=== PATIENT | male | born 1985 | race Caucasian/White ===

== ENCOUNTER 2017-09-19 23:17 | Emergency (ER) | payer OTHER, SELFPAY ==
[2017-09-19 23:23] VITALS: BP 136/83; PULSE 120; RESP 20; TEMP 38.2; O2SAT 97; BMI 30.7
--- NOTE | 2017-09-20 00:14 | ED_ITS ---
HPI - General Adult General Chief complaint: Back Pain/Injury Stated complaint: low back pain, fever, neck hurts Time Seen by Provider: 09/19/17 23:53 Source: patient Mode of arrival: ambulatory Limitations: no limitations History of Present Illness HPI narrative: Otherwise healthy 32-year-old male here for evaluation of fevers and chills and back and neck pain. Patient states that he has scoliosis and has baseline back pain. He states that earlier in the evening he developed a fever and chills which cause his back and neck pain. Has some nausea but no vomiting. Does have a sore throat. Does have sinus congestion. Has took some Advil prior to arrival. No problem swallowing. No cough. Related Data Allergies Allergy/AdvReac Type Severity Reaction Status Date / Time No Known Drug Allergies Allergy Verified 09/19/17 23:26 Review of Systems Constitutional Reports body ache(s), Reports chills, Reports fatigue, Reports fever(s), Denies headache(s), Denies lethargy and Denies weakness Eyes Denies change in vision, Denies eye discharge, Denies irritation and Denies loss of vision ENT Ears, Nose, Mouth, and Throat: Denies dysphagia, Denies vertigo, Denies headache (s), Reports sinus pressure and Reports sore throat Cardiovascular Denies chest pain, Denies irregular heart rhythm, Denies lightheadedness, Denies palpitations, Denies dyspnea, Denies dyspnea on exertion and Denies orthopnea Respiratory Denies cough, Denies dyspnea, Denies dyspnea on exertion and Denies wheezing Gastrointestinal Gastrointestinal: Denies dysphagia, Reports nausea and Denies vomiting Musculoskeletal Reports myalgias and Denies arthralgias Integumentary/Breasts Denies pruritus, Denies erythema, Denies rash and Denies wounds Neurologic Denies vertigo, Denies headache(s), Denies loss of vision and Denies weakness Endocrine Reports fatigue and Denies palpitations Hematologic/Lymphatic Denies easy bruising Allergic/Immunologic Denies wheezing [facility] Social History Smoking Status: Never smoker Exam Initial Vital Signs Initial Vital Signs: Vital Signs Temperature 100.8 F H 09/19/17 23:23 Pulse Rate 120 H 09/19/17 23:23 Respiratory Rate 20 09/19/17 23:23 Blood Pressure 136/83 H 09/19/17 23:23 Pulse Oximetry 97 09/19/17 23:23 Const General: cooperative and well developed Nutritional Appearance: well nourished Orientation: alert, awake, oriented x3 and not confused [facility] Head: normocephalic and atraumatic Ears: external ears normal and TM's normal bilaterally Nose: external nose normal and No nasal discharge Face and sinus: sinuses nontender, face symmetric, no sinus tenderness and No dry mucous membranes Mouth: oral mucosae normal and moist mucous membranes Teeth and gingiva: dentition normal Throat: tonsils normal and uvula midline Neck Neck: normal visual inspection, no meningeal signs, No positive Brudzinski's sign and No positive Kernig's sign Lymphatic: No lymphadenopathy Resp Effort & Inspection: normal respiratory effort, able to speak in complete sentences, no respiratory distress and no use of accessory muscles Auscultation: clear to auscultation bilaterally, no rales, no rhonchi and no wheezes Back/Spine/Pelvis Back: No CVA tenderness Cervical Spine: cervical ROM normal and pain with cervical ROM (Right-sided paraspinal tenderness with flexion) Thoracic/Lumbar Spine: thoracic and lumbar spine normal to inspection Skin General: no rashes or lesions noted, No jaundice and No petechiae Neuro General: alert, oriented x3, gait normal and no focal motor deficits Speech: speech normal Motor: muscle tone normal throughout Sensory Exam: no sensory deficits noted Extrem General: full ROM, no clubbing, cyanosis or edema, no pedal edema and no calf tenderness Course Orders Ordered: ED Orders 09/20/17 00:34 Influenza A and B by PCR Rapid Stat Discontinued Medications Acetaminophen (Tylenol) 975 mg PO NOW ONE Stop: 09/20/17 00:15 Last Admin: 09/20/17 00:43 Dose: 975 mg Sodium Chloride (Normal Saline 0.9%) 1,000 mls @ 1,000 mls/hr IV BOLUS ONE Stop: 09/20/17 01:13 Ketorolac Tromethamine (Toradol) 30 mg IV NOW ONE Stop: 09/20/17 00:15 Morphine Sulfate (Morphine) 4 mg IV NOW ONE Stop: 09/19/17 23:54 Ondansetron HCl (Zofran) 4 mg IV Q2HR PRN PRN Reason: Nausea And Vomiting Vital Signs - 8 hr 09/19/17 23:23 Temperature 100.8 F H Pulse Rate 120 H Respiratory Rate 20 Blood Pressure 136/83 H Pulse Oximetry 97 Medical Decision Making MDM Narrative Medical decision making narrative: Patient is nontoxic appearing. Did have a fever. Was given IV fluids and Toradol and Tylenol upon arrival and he states that that has improved his symptoms tremendously. We did discussed the concern for meningitis secondary to his neck pain and his fever however his physical exam is not real consistent with this diagnosis. We did discuss that lumbar puncture would be the only definitive way of distinguishing meningitis or not. Patient stated that he did not want a lumbar puncture. His flu was negative. Physical exam not consistent with pneumonia. Does have sinus congestion a sore throat. We did discuss the importance of holding off on other NSAIDs for the next 24 hr. He was given return precautions. He expressed understanding and agreement with plan. Lab Data Lab results reviewed: Yes I reviewed the patient's lab results. Lab Results 09/20/17 Range/Units 00:34 Influenza A & B (PCR) Negative (Negative) Discharge Plan Departure Patient Disposition: Home, Self-Care Clinical Impression: Fever and chills, Back pain Instructions: DI for Fever (Symptom) -- Adult Activity Restrictions/Additional Instructions: Recommend that you stay away from nonsteroidal such as Motrin, ibuprofen, Naprosyn, Advil for the next 24 hr. You can take Tylenol/acetaminophen for any fevers or chills. Follow up with her medical department tomorrow. Return to the emergency department for any new or worsening symptoms Stand Alone Forms: Work/School Restrictions
[2017-09-20] MEDS: SODIUM CHLORIDE 0.9% 1,000 ML 1000 ML IV (00:30)
[2017-09-20] MEDS: MORPHINE 4 MG/ML INJ IV (00:35)
[2017-09-20] MEDS: ACETAMINOPHEN 325 MG TABLET 975 MG PO (00:43)
[2017-09-20 01:01] LABS: Influenza A and B by PCR Rapid Negative (Negative)
[2017-09-20] MEDS: KETOROLAC 60 MG/2 ML VIAL 30 MG IV (01:37)
[2017-09-20 01:49] VITALS: BP 130/66; PULSE 90; RESP 18; TEMP 38.3; O2SAT 98
== END 2017-09-20 01:30 | disposition home or self-care (01) ==
PROVIDERS: Emergency Provider Emergency Medicine
DX: R50.9 Fever, unspecified (principal); M54.9 Dorsalgia, unspecified
CPT/HCPCS: 87400; 87880; 96361; 96374; 96375; 99283; 99284; J1885; J2270

== ENCOUNTER 2017-12-13 21:10 | Emergency (ER) | payer OTHER, SELFPAY ==
[2017-12-13] VITALS (8 sets, daily range): BP systolic 123–158; BP diastolic 74–108; PULSE 70–88; RESP 15–28; TEMP 37; O2SAT 96–100; BMI 30.3
[2017-12-13] MEDS: NITROGLYCERIN 0.4 MG SL TAB SL (21:20)
--- NOTE | 2017-12-13 21:21 | DI.RAD.S_ITS ---
PROCEDURE: XR CHEST 1V INDICATIONS: chest pain TECHNIQUE: One view of the chest was acquired. COMPARISON: None. FINDINGS: Surgical changes and devices: None. Lungs and pleura: No pleural effusions or pneumothorax. Lungs are clear. Mediastinum: Mediastinal contours appear normal. Heart size is normal. Bones and chest wall: No suspicious bony lesions. Overlying soft tissues appear unremarkable. IMPRESSION: No acute cardiopulmonary disease process. Dictated by: Yaneth Guillermo MD, PhD on 12/13/2017 at 21:41 Approved by: Yaneth Guillermo MD, PhD on 12/13/2017 at 21:41
--- NOTE | 2017-12-13 21:24 | ED.CHESTPAIN ---
HPI - Chest Pain General Chief Complaint: Chest Pain Stated Complaint: Chest Pain Time Seen by Provider: 12/13/17 21:10 Source: patient and EMS Mode of arrival: EMS Limitations: no limitations History of Present Illness HPI narrative: 32-year-old male with history of hypertension presents to the emergency department by EMS for evaluation left shoulder pain that started while at rest about 4 hr prior to his arrival. He complains of radiation to his chest and back and states that it is sharp and stabbing in nature with periods of achy or heaviness. He denies associated symptoms such as dizziness, weakness or lightheadedness. He denies nausea or vomiting. He denies any diaphoresis or generalized weakness. He denies provocation or palliation states at worst it is 7/10 on arrival is down to 3/10 MD complaint: chest pain Onset (ago): hour(s) Duration: improved Onset: during rest Pain location: left chest Severity: mild Quality: aching and sharp Pain radiation: LUE Relieving factors: nothing Exacerbating factors: nothing Related Data Previous Rx's Medication Instructions Recorded nitroglycerin 0.4 mg SL Q5-15M PRN #30 tab 12/14/17 Allergies Allergy/AdvReac Type Severity Reaction Status Date / Time No Known Drug Allergies Allergy Verified 09/19/17 23:26 Review of Systems Review of Systems All systems reviewed & are unremarkable except as noted in HPI and below Constitutional Denies chills, Denies fever(s), Denies lethargy and Denies weakness Eyes Denies change in vision, Denies eye discharge, Denies irritation and Denies loss of vision ENT Ears, Nose, Mouth, and Throat: Denies change in voice, Denies neck pain and Denies sore throat Cardiovascular Reports chest pain, Denies irregular heart rhythm, Denies lightheadedness, Denies palpitations, Denies dyspnea, Denies dyspnea on exertion and Denies orthopnea Respiratory Denies cough, Denies dyspnea, Denies dyspnea on exertion and Denies wheezing Gastrointestinal Gastrointestinal: Denies abdominal pain, Denies change in bowel habits, Denies diarrhea, Denies nausea and Denies vomiting Genitourinary Denies hematuria, Denies flank pain, Denies urinary incontinence and Denies urinary urgency Musculoskeletal Denies neck pain Integumentary/Breasts Denies pruritus, Denies erythema, Denies rash and Denies wounds Neurologic Denies confusion, Denies loss of vision and Denies weakness Psychiatric Denies anxiety, Denies confusion, Denies depression, Denies homicidal ideation and Denies suicidal ideation Endocrine Denies palpitations Hematologic/Lymphatic Denies easy bruising Allergic/Immunologic Denies wheezing [facility] Medical History HTN (hypertension) (Acute) Social History Smoking Status: Never smoker Exam Initial Vital Signs Initial Vital Signs: Vital Signs Temperature 98.6 F 12/13/17 21:19 Pulse Rate 86 12/13/17 21:19 Respiratory Rate 16 12/13/17 21:19 Blood Pressure 158/106 H 12/13/17 21:19 Pulse Oximetry 100 12/13/17 21:19 Const General: cooperative and well developed Nutritional Appearance: well nourished Orientation: alert, awake, oriented x3 and not confused [facility] Head: normocephalic and atraumatic Ears: external ears normal and TM's normal bilaterally Nose: external nose normal and No nasal discharge Face and sinus: sinuses nontender, face symmetric, no sinus tenderness and No dry mucous membranes Mouth: oral mucosae normal and moist mucous membranes Teeth and gingiva: dentition normal Throat: tonsils normal and uvula midline Eyes General: appearance normal, both eyes and all related structures Eyelids: eyelids normal Conjunctivae: conjunctivae normal Sclera: sclerae normal Pupils: PERRL EOM: EOM intact bilaterally Neck Neck: normal visual inspection, trachea midline, No lymphadenopathy, No midline deformity and No JVD Lymphatic: No lymphedema Chest Chest: normal inspection of the chest Resp Effort & Inspection: normal respiratory effort, able to speak in complete sentences, no respiratory distress and no use of accessory muscles Auscultation: clear to auscultation bilaterally, no rales, no rhonchi and no wheezes Cardio Rate: regular rate Rhythm: regular rhythm Heart Sounds: no click, no gallops, no murmurs and no rubs Pulses: normal peripheral pulses GI Inspection: non-distended Palpation: soft, no hepatosplenomegaly, No guarding, No pulsatile mass and No tender Auscultation: normal bowel sounds Back/Spine/Pelvis Back: No CVA tenderness Cervical Spine: cervical ROM normal and No pain with cervical ROM Thoracic/Lumbar Spine: thoracic and lumbar spine normal to inspection Skin General: no rashes or lesions noted, No jaundice and No petechiae Neuro General: alert, oriented x3, gait normal and no focal motor deficits Speech: speech normal Extrem General: full ROM, no clubbing, cyanosis or edema, no pedal edema and no calf tenderness Psych Appearance: well kempt Mental Status: mental status grossly normal Attitude: cooperative Thought Content: normal and suicidality Judgment: judgment good Scores HEART Score Heart Score history: Slightly Suspicious Heart Score EKG: Non-Specific repolarization disturbance Heart Score Age: < 45 years old Heart Score risk factors: 1-2 risk factors Heart Score troponin: < or = to normal limit Heart Score Total: 2 Course Orders Ordered: ED Orders 12/13/17 21:19 Complete Blood Count AUTO DIFF Stat Comprehensive Metabolic Panel Stat Lipase Stat Troponin & CK Cardiac Panel Stat 12/13/17 21:21 XR chest 1V Stat EKG-12 Lead Stat Discontinued Medications Sodium Chloride (Normal Saline 0.9%) 1,000 mls @ 150 mls/hr IV CONT JOANN Last Infusion: 12/14/17 01:17 Dose: 0 mls/hr Admin: 12/13/17 21:34 Dose: 150 mls/hr Metoprolol Tartrate (Lopressor) 5 mg IV NOW ONE Stop: 12/13/17 21:21 Last Admin: 12/13/17 21:34 Dose: 5 mg Nitroglycerin (Nitrostat) 0.4 mg SL [id number] PRN PRN Reason: Chest Pain Last Admin: 12/13/17 21:20 Dose: 0.4 mg Reevaluation(s) Reevaluation #1: Patient continues to feel well throughout the course of his visit and has resolution of symptoms after nitro Vital Signs - 8 hr 12/13/17 22:30 12/13/17 22:38 12/13/17 23:00 Pulse Rate 74 70 78 Respiratory Rate 16 22 16 Blood Pressure [Right Arm] 147/89 H 139/74 H 130/90 H Pulse Oximetry 97 96 97 12/13/17 23:30 12/14/17 00:00 12/14/17 00:30 Pulse Rate 81 82 80 Respiratory Rate 15 14 16 Blood Pressure [Right Arm] 123/87 H 119/82 H 126/92 H Pulse Oximetry 97 98 100 12/14/17 01:17 Pulse Rate 84 Respiratory Rate 16 Blood Pressure [Right Arm] 122/80 H Pulse Oximetry 100 MDM - Chest Pain Differential Diagnosis Likely pneumothorax, stable angina, unstable angina pectoris, atypical chest pain, st elevation myocardial infarction, costochondritis, chest pain and biliary colic Medical Records Data Attestation: I reviewed the patient's medical records. Lab Data Attestation: I reviewed the patient's lab results. Result diagrams: 12/13/17 21:19 12/13/17 21:19 Lab Results 12/13/17 12/13/17 12/13/17 Range/Units 00:23 21:19 21:19 WBC 8.5 (4.5-11.0) X10^3/uL RBC 5.15 (4.5-5.9) X10^6/uL Hgb 15.3 (13.5-17.5) g/dL Hct 43.9 (41-53) % MCV 85.3 (80-100) fL MCH 29.7 (26-34) PG MCHC 34.8 (30-36) % RDW 13.4 (11.6-14.8) % Plt Count 359 (150-400) X10^3/uL Neut % (Auto) 63.6 (50-75) % Lymph % (Auto) 24.6 L (25-40) % Dare % (Auto) 7.8 (3-14) % Eos % (Auto) 3.4 (2-4) % Baso % (Auto) 0.6 (0-2) % Neut # (Auto) 5400 (2003-6069) /uL Sodium 140 (137-145) mmol/L Potassium 4.2 (3.4-5.1) mmol/L Chloride 99 (98-107) mmol/L Carbon Dioxide 29 (22-32) mmol/L BUN 19 (9-20) mg/dL Creatinine 1.20 (0.66-1.25) mg/dL Estimated GFR > 60.0 (>60) mL/min BUN/Creatinine Ratio 15.8 (6-22) Glucose 105 H (70-100) mg/dL Calcium 9.4 (8.4-10.2) mg/dL Total Bilirubin 0.5 (0.2-1.3) mg/dL AST 32 (17-59) IU/L ALT 55 (21-72) IU/L Alkaline Phosphatase 76 (38-126) U/L Total Creatine Kinase 39 L (55-170) U/L Troponin I < 0.012 < 0.012 (0.01-0.034) ng/mL Total Protein 7.5 (6.3-8.2) g/dL Albumin 4.7 (3.5-5.0) g/dL Globulin 2.8 (1.7-4.1) g/dL Albumin/Globulin Ratio 1.7 (1.0-2.8) Lipase 124 (23-300) U/L ECG Data Attestation: I personally reviewed and interpreted this ECG as follows: Interpretation: Multiple EKGs noting normal sinus rhythm with nonspecific T-wave abnormalities but no ST changes obtained. No ectopic beats noted. MDM Narrative Medical decision making narrative: 32-year-old male with history of hypertension and strong family history presents with chest pain that is not classic for ischemic etiology. His heart score is to any is multiple nonischemic EKGs and 2 troponins by 3 hr which are unremarkable. Patient did have some discomfort which seemed to be relieved with nitro and as a result we spoke at length about the importance of close follow-up and the likelihood of an echocardiogram and a stress test. I gave him verbal bedside nitro instructions Discharge Plan Departure Patient Disposition: Home Clinical Impression: Chest pain Discharge Date/Time: 12/14/17 01:21 Interventions: ED Discharge Assessment Last Done: 12/14/17 01:21 Instructions: DI for Chest Pain Activity Restrictions/Additional Instructions: *You have been diagnosed with [ chest pain ] *What to do: *Take medications as directed *Follow up with your primary care provider in 2-3 days, call for an appointment. Let them know you were seen in the Emergency Department and that we ask that you be seen in follow up *Return to ER if you should have any new, worsening or concerning symptoms, such as [chest pain, shortness of breath, dizziness, weakness, lightheadedness or other bothersome symptoms ] Prescriptions: New nitroglycerin 0.4 mg tablet, sublingual 0.4 mg SL Q5-15M PRN (Reason: chest pain) Qty: 30 RF: 0
[2017-12-13 21:28] LABS: Add Manual Diff / Slide Review NO; Basophils Percent Auto 0.6 % (0-2); Eosinophils Percent Auto 3.4 % (2-4); Hematocrit 43.9 % (41-53); Hemoglobin 15.3 g/dL (13.5-17.5); Lymphocytes Percent Auto 24.6 % (25-40); Mean Corpuscular HGB Conc 34.8 % (30-36); Mean Corpuscular Hemoglobin 29.7 PG (26-34); Mean Corpuscular Volume 85.3 fL (80-100); Monocytes Percent Auto 7.8 % (3-14); Neutrophils Absolute Auto 5400 /uL (3000-5900); Neutrophils Percent Auto 63.6 % (50-75); Platelet Count 359 X10^3/uL (150-400); Red Blood Cell Count 5.15 X10^6/uL (4.5-5.9); Red Cell Distribution Width 13.4 % (11.6-14.8); White Blood Cell Count 8.5 X10^3/uL (4.5-11.0)
[2017-12-13] MEDS: SODIUM CHLORIDE 0.9% 1,000 ML 150 ML IV (21:34)
[2017-12-13] MEDS: METOPROLOL TARTRATE 5 MG/5 ML INJ IV (21:34)
[2017-12-13 21:38] LABS: Alanine Aminotransferase 55 IU/L (21-72); Albumin 4.7 g/dL (3.5-5.0); Albumin Globulin Ratio 1.7 (1.0-2.8); Alkaline Phosphatase 76 U/L (38-126); Aspartate Aminotransferase 32 IU/L (17-59); BUN Creatinine Ratio 15.8 (6-22); Bilirubin Total 0.5 mg/dL (0.2-1.3); Blood Urea Nitrogen 19 mg/dL (9-20); Calcium 9.4 mg/dL (8.4-10.2); Carbon Dioxide 29 mmol/L (22-32); Chloride 99 mmol/L (98-107); Creatine Kinase 39 U/L (55-170); Estimated Glomerular Filt Rate > 60.0 mL/min (>60); Globulin 2.8 g/dL (1.7-4.1); Glucose 105 mg/dL (70-100); HEMOLYSIS < 15 (0-50); Lipase 124 U/L (23-300); Potassium 4.2 mmol/L (3.4-5.1); Sodium 140 mmol/L (137-145); Total Protein 7.5 g/dL (6.3-8.2)
[2017-12-13 21:51] LABS: Troponin I < 0.012 ng/mL (0.01-0.034)
[2017-12-14] VITALS: BP 119/82; PULSE 82; RESP 14; O2SAT 98
[2017-12-14 00:30] VITALS: BP 126/92; PULSE 80; RESP 16; O2SAT 100
[2017-12-14 00:55] LABS: Troponin I < 0.012 ng/mL (0.01-0.034)
[2017-12-14 01:17] VITALS: BP 122/80; PULSE 84; RESP 16; O2SAT 100
== END 2017-12-14 01:21 | disposition home or self-care (01) ==
PROVIDERS: Emergency Provider Emergency Medicine
DX: R07.89 Other chest pain (principal)
CPT/HCPCS: 36415; 36591; 71045; 80053; 82550; 82553; 83690; 84484; 85025; 93005; 93010; 93041; 96361; 96374; 99285